=== PATIENT | female | born 1980 | race Caucasian/White ===

== ENCOUNTER 2016-07-25 21:33 | Emergency (ER) | payer OTHER ==
[~2016-07-25] VITALS: Ht 175.9 cm; Wt 115.5 kg
[~2016-07-25 21:33] MED LIST: AMPH20CA5 PO; WELLXL150T PO; ZOL50 PO
[2016-07-25 21:41] VITALS: BP 125/85; PULSE 91; RESP 20; O2SAT 97
--- NOTE | 2016-07-25 21:57 | ED.REPORT ---
HPI- Female Date of Service Jul 25, 2016 ED Provider: Aron Wilson MD Patient is a 35 y/o female with a history of pyelonephritis, cellulitis, and chronic back pain that presents with sudden severe back pain rated 6/10 onset 1800. The pain began when she stood up to get out of her car and has persisted since. She had been sitting for approximately one hour before standing up, but denies a muscle spasm like this occurring in the past. The patient denies pleuritic pain and has not taken muscle relaxers recently. She has not taken any medication to treat her pain. Nursing Notes Chief Complaint: Female Abdominal Pain Nursing Notes Reviewed: Yes Allergies: Coded Allergies: citalopram hydrobromide (Verified Allergy, Intermediate, emotional lability, 07/25/16) meperidine HCl (Verified Allergy, Intermediate, hallucinations, 07/25/16) Scheduled Bupropion-Expunged Drug, Do Not Renew! (Bupropion XL-Expunged Drug, Do Not Renew !) 150 Mg Tab.er.24 150 MG PO DAILY Mixed Amphet-Expunged Drug, Do Not Renew! (Mixed Amphet-Expunged Drug, Do Not Renew!) 20 Mg Cap.sr.24h 20 MG PO DAILY Sertraline-Expunged Drug, Choose New Med! (Sertraline-Expunged Drug, Choose New Med!) 50 Mg Tab 50 MG PO DAILY Scheduled PRN Cyclobenzaprine (Cyclobenzaprine) 10 Mg Tablet 5-10 MG PO HS PRN PRN Spasm General Time Seen by MD: 21:54 Chief Complaint Other (Back Pain) Hx Obtained From: Patient Arrived By: Walk-in Sudden in Onset?: Yes Onset Occurred: 5 - 8 hours ago Symptom Duration: Since onset Recent Healthcare: No recent hospitalization, Recent doctor visit Similar Sx Previous: No Past Medical History Past Medical History Cellulitis Pyelonephrisis Chronic back pain Past Surgical History coccyx removed Reports: Appendectomy, Tonsillectomy Smoking History Former Smoker Social History Alcohol Use: Denies alcohol use Drug Use: Denies drug use Occupation works as a rn care transition, lives with son Ambulatory Status Independent Review of Systems GI: Denies: Abdominal pain Musculoskeletal: Reports: Back pain Skin: Denies Rash Complete sys rev & neg: except as marked. Respiratory: Denies: Non-productive cough, Pleuritic pain, Shortness of breath Cardiovascular: Denies: Chest pain Physical Exam Initial Vital Signs Vital Signs (First) Date Time Temp Pulse Resp B/P Pulse Ox O2 Delivery O2 Flow Rate FiO2 07/25/16 21:41 36.3 91 20 125/85 97 Room Air Initial VS: Reviewed, Vital signs normal General/Constitutional: Well-developed, Well-nourished Head / Eyes: Atraumatic, Normocephalic, PERRL Cardiovascular: Regular rate & rhythm, Heart sounds normal, Intact distal pulses Skin: Warm, Dry, No cyanosis Neurologic: Alert, Oriented, Nonfocal Female Genitourinary: Exam deferred Respiratory / Chest: Atraumatic, Breath sounds NL, Breath sounds = bilat, No respiratory distress Abdomen: Atraumatic, Soft, Non-tender, BS normoactive Back: Atraumatic, No CVA tenderness Tenderness to palpation of left mid-back. Mid-back paraspinal muscle spasms bilaterally. Interpretation & Diagnostics Lab Results Interpretation Test 07/25/16 21:45 07/25/16 21:59 Urine Color Straw (YELLOW) Urine Appearance Clear (CLEAR,HAZY) Urine pH 5.5 (5.0-8.0) Urine Specific [place] 1.005 (1.003-1.035) Urine Protein Negativemg/dL (NEG,TRACE) Urine Glucose (UA) Negativemg/dL (NEGATIVE) Urine Ketones Negativemg/dL (NEGATIVE) Urine Occult Blood Negative (NEGATIVE) Urine Nitrite Negative (NEGATIVE) Urine Bilirubin Negative (NEGATIVE) Urine Urobilinogen Normalmg/dL (NORMAL) Urine Leukocyte Esterase Negative (NEGATIVE) Urine RBC 0-2/hpf (0-2) Urine WBC 0-5/hpf (0-5) Urine Epithelial Cells Occasional/hpf (NONE-MOD) Urine Crystals None seen (NONE SEEN) Urine Bacteria None/hpf (NONE-FEW) Urine Hyaline Casts None/lpf (NONE) Urine Granular Casts None seen (NONE SEEN) Urine Waxy Casts None seen (NONE SEEN) Urine Red Blood Cell Casts None seen (NONE SEEN) Urine White Blood Cell Casts None seen (NONE SEEN) Urine Mucus None seen (None Seen) Urine Trichomonas None seen (NONE SEEN) Urine Yeast None (NONE SEEN) Urinalysis Comment None Urine Culture Reflexed Not indicated Hold Urine Received (Received) Lab values outside NL range: no clinical significance. Re-Eval/Medical Decision Med Decision/Clinical Course 35-year-old female with back pain. It was described as sudden onset but on closer questioning, she was sitting in the car for almost an hour and when she attempted to get out of the car she had pain. He likely stiffened that entire time she was sitting and only responded with spasm when she tried to move. Urinalysis is negative. No evidence of infection or hematuria. Her pain is much diminished. She has tender spasm of the low thoracic upper lumbar paraspinous muscles. She is given a dose of Flexeril and a prescription for 5 days. She will follow up as needed. Source of Hx: Old records Re-Evaluation/Progress : Time of Eval: 23:30 Patient Status: Condition unchanged Re-Evaluation/Progress Note: Diagnosis and plan for discharge discussed. The patient understands and agrees with the plan. All questions have been answered. Counseled Regarding: Diagnosis, Lab results, Need for follow-up, When/why to return to ED Discharge & Departure Impression: Primary Impression: Paraspinal muscle spasm Disposition: Home Discharge Condition All VS Reviewed: Yes Condition: Improved Patient Instructions: Low Back Strain (ED) Additional Instructions: Your pain appears to be due to strain and spasm in the paraspinous muscles. Keep active but do not do heavy lifting or repetitive bending and stooping. Stretching exercises are helpful. At this time with a relatively new injury the best stretch would be to lay flat on your back and draw your knees up, applying a light stretch to your back muscles. Tylenol and/or ibuprofen as needed. Flexeril 5-10 mg at bedtime if needed for spasm interfering with sleep. See your regular doctor this week if you have persistent problems. Referrals: Jonelle Haddad MD (PCP) Scribe Attestation Portions of this note were transcribed by Ancelmo Theodore and Brock Badillo. I, Dr. Wilson personally performed the history, physical exam and medical decision-making; I reviewed and confirmed the accuracy of the information in the transcribed note. Signed by: Ancelmo Theodore and Brock Badillo, Scribe, 07/26 and 0115. copies to: Jonelle Haddda MD, Aron Fernandez MD Jul 25, 2016 21:56 Ancelmo Theodore Jul 25, 2016 22:39 BROCK BADILLO Jul 26, 2016 01:10
[2016-07-25 23:02] LABS: APPEARANCE,URINE CLEAR (CLEAR,HAZY); COLOR,URINE STRAW (YELLOW)
[2016-07-25 23:03] LABS: OCCULT BLOOD,URINE NEGATIVE (NEGATIVE); PH,URINE 5.5 (5.0-8.0); UROBILINOGEN,URINE NORMAL (NORMAL)
[2016-07-25] MEDS ORDERED: CYCL10TA9 PO (23:41)
== END 2016-07-25 23:45 | disposition home or self-care (01) ==
LOC: SED 21:33
DX: M62.838 Other muscle spasm (principal); Z87.891 Personal history of nicotine dependence; Z88.8 Allergy status to other drugs, medicaments and biological substances